=== PATIENT | male | born 1965 | race Caucasian/White ===

== ENCOUNTER 2021-06-20 22:56 | Emergency (ER) | payer OTHER, SELFPAY ==
--- NOTE | ~2021-06-20 | CT_ITS ---
EXAMINATION: CT abdomen pelvis wo con DATE: 06/21/2021 00:21 INDICATION: Worsening back pain, left flank pain TECHNIQUE: Computed tomography (CT) of the abdomen and pelvis was performed without intravenous contr ast. The dose-length product (DLP) was 1252.65 mGy-cm. Automated exposure control and iterative recon struction technique were employed. COMPARISON: 06/12/2016 FINDINGS: The lung bases are clear. The heart size is normal. The liver, spleen, pancreas, gallbladde r, and right adrenal gland are normal. There is a chronic and unchanged 11 mm mass of the left adrena l gland, consistent with an adenoma. There is a 1.7 cm cyst of the right kidney. No stones are identi fied in the kidneys, ureters, or bladder. There is no hydronephrosis or hydroureter. There is calcifi ed atherosclerosis of the aorta and many of the other arteries. No pathologically enlarged abdominal or pelvic lymph nodes are identified. There is no free intraperitoneal gas or evidence of bowel obstr uction. Colonic diverticulosis is present without evidence of diverticulitis. There are changes of me sh ventral hernia repair. The appendix is normal. There are changes of anterior and posterior fusion from L2 through S1. There is severe thoracolumbar spondylosis. IMPRESSION: 1. No CT correlate for the patient's symptoms. No urolithiasis identified. Reviewed, dictated and finalized at location A. [facility] TECH
[2021-06-20 22:59] VITALS: BP 187/118; PULSE 92; RESP 20; TEMP 36.7; O2SAT 98
[2021-06-20 23:16] VITALS: BP 177/106; PULSE 89; RESP 22; O2SAT 99
[2021-06-20] MEDS: ONDANSETRON INJ 4 MG/2 ML VIAL IV PUSH (23:47)
[2021-06-20 23:48] LABS: Basophils Percent Auto 0.5 % (0.2-1.2); Eosinophils Absolute Auto 0.2 K/mm3 (0-0.3); Eosinophils Percent Auto 2.7 % (0-4.4); Hematocrit 45.7 % (42.0-52.0); Hemoglobin 15.5 g/dL (14.0-18.0); Immature Granulocyte Absolute 0.02 K/mm3 (0.00-0.031); Immature Granulocyte Percent A 0.3 % (0-0.5); Lymphocytes Absolute Auto 1.76 K/mm3 (0.9-3.2); Lymphocytes Percent Auto 22.8 % (18.3-44.2); Mean Corpuscular HGB Conc 33.9 g/dl (32-36); Mean Corpuscular Hemoglobin 32.1 pg (26-34); Mean Corpuscular Volume 94.6 fl (80-100); Mean Platelet Volume 10.1 fl (7.4-10.4); Monocytes Absolute Auto 0.8 K/mm3 (0.1-0.6); Monocytes Percent Auto 10.2 % (2.6-8.5); Neutrophils Absolute Auto 4.9 K/mm3 (1.3-6.7); Neutrophils Percent Auto 63.5 % (45.5-73.1); Platelet Count Result 197 k/mm3 (150-375); Red Blood Count 4.83 M/mm3 (4.6-6.20); Red Cell Distribution Width 13.9 % (11.5-14.5); White Blood Count 7.7 K/mm3 (4.5-10.0)
[2021-06-20] MEDS: HYDROmorphone HCL INJ (*CRX) 1 MG/ML SYR IV PUSH (23:48)
[2021-06-20 23:49] LABS: Add Urine Microscopic? NO; Appearance Urine Clear (Clear); Bilirubin Urine Negative (Negative); Blood Urine Negative (Negative); Color Urine Straw (Yellow); Glucose Urine UA Negative (Negative); Ketones Urine Negative (Negative); Leukocyte Esterase Ur Negative LEU/UL (Negative); Nitrate Urine Negative (Negative); Protein Urine Negative (Negative); Urobilinogen Urine Negative mg/dL (<2.0)
[2021-06-21 00:18] VITALS: BP 141/101; PULSE 93; RESP 18; O2SAT 98
--- NOTE | 2021-06-21 00:21 | ED.BACK ---
HPI - Back Pain/Injury General Chief Complaint: Back Pain/Injury Stated Complaint: Back and left leg pain Time Seen by Provider: 06/20/21 23:10 Source: patient and RN notes reviewed Mode of arrival: wheelchair Limitations: no limitations History of Present Illness HPI Narrative: This is a 55 year old male with history of multiple back surgeries with chronic back pain who presents for evaluation of worsening mid back pain that will radiate around to his left flank. His pain is constant and it is worse with position. He says his pain has been worse over the past 3 days. This may be related to performing a lot of yard work recently . Otherwise he denies trauma. He takes hydrocodone 10/325 twice a day chronically for pain for while. He has taken his medication for today but he states he is unable to sleep due to pain. He reports intermittent tingling to left foot that is not new. He states he is unable to take gabapentin because it worsens his nerve pain. He is asking for back injection to help with his pain. He denies fever, chills, hematuria, urinary incontinence or retention. He is worried he may have another kidney stone. Related Data Home Medications Medication Instructions Recorded Confirmed amlodipine 06/20/21 hydrochlorothiazide 06/20/21 hydrocodone-acetaminophen tablet 06/20/21 omeprazole 06/20/21 ondansetron HCl 06/20/21 potassium chloride meq PO 06/20/21 Allergies Allergy/AdvReac Type Severity Reaction Status Date / Time gabapentin AdvReac Other Verified 06/20/21 23:21 Review of Systems Review of Systems: All systems reviewed & are unremarkable except as noted in HPI and below PMFSH Past Medical History Medical History (Updated 06/21/21 @ 02:21 by Salome Kaur MD) Chronic back pain Hypertension Neuropathy Surgical History Surgical History (Updated 06/21/21 @ 00:25 by Salome Kaur MD) Previous back surgery Social History Social History (Updated 06/21/21 @ 00:26 by Salome Kaur MD) Smoking status: Current every day smoker Exam Const: General: alert and ill appearing chronically Nutritional Appearance: obese Orientation/consciousness: patient oriented x3 Eyes: EOM: EOMs intact bilaterally Chest: Chest palpation & inspection: normal inspection of the chest Resp: Effort & Inspection: normal respiratory effort and no retractions Auscultation: clear to auscultation bilaterally Cardio: Rate: regular rate Rhythm: regular rhythm Heart sounds: no murmurs GI: GI Palp: Yes Soft to palpation, No Tenderness to palpation present (GI) and No Guarding due to palpation present (GI) Auscultation: normal bowel sounds Back/Spine/Pelvis: Other: midline lumbar scar, no swelling, no erythema, mild tenderness along scar Neuro: General: patient oriented x3, moves all extremities and CN's II-XI intact bilaterally Cranial nerves: Yes CN's II-XII intact bilaterally Motor exam (neuro): 5/5 motor strength present throughout and Pronator motor function not present Extrem: Other: left ankle with old scar, no drainage, no erythema, no drainage Psych: Mental Status: mental status grossly normal Affect: normal affect Course Reevaluation(s) Reevaluation #1: I have discussed with patient that CT did not show any acute abnormality and no kidney stone.I Discussed discharge plan . He had no other questions or concerns. Date: 06/21/21 Time: 02:18 Vital Signs Vital signs: Vital Signs Temperature 98.0 F 06/20/21 22:59 Pulse Rate 92 06/20/21 22:59 Respiratory Rate 20 06/20/21 22:59 Blood Pressure 187/118 H 06/20/21 22:59 Pulse Oximetry 98 06/20/21 22:59 Temperature 98.0 F 06/20/21 22:59 Pulse Rate 86 06/21/21 02:42 Respiratory Rate 18 06/21/21 02:42 Blood Pressure 140/100 H 06/21/21 02:42 Pulse Oximetry 97 06/21/21 02:42 MDM - Back Pain/Injury Lab Data Attestation: I reviewed the patient's lab results. Result diagrams: 06/20/21
[2021-06-21 00:56] LABS: Alanine Aminotransferase 12 U/L (4-50); Albumin Level 4.4 g/dL (3.5-5.1); Alkaline Phosphatase 70 U/L (38-126); Anion Gap 10 mmol/L (8-16); Aspartate Amino Transferase 22 U/L (17-59); Bilirubin,Total 0.6 mg/dL (0.2-1.3); Blood Urea Nitrogen 22 mg/dL (9-20); Carbon Dioxide 28 mmol/L (22-30); Chloride 97 mmol/L (98-107); Estimated Glomerular Filt Rate > 60; Glucose 108 mg/dL (65-110); Lipase 84 U/L (23-300); Potassium 4.1 mmol/L (3.4-5.0); Sodium 135 mmol/L (137-145)
[2021-06-21 01:19] VITALS: BP 143/110; PULSE 91; RESP 20; O2SAT 95
[2021-06-21 02:42] VITALS: BP 140/100; PULSE 86; RESP 18; O2SAT 97
== END 2021-06-21 03:05 | disposition home or self-care (01) ==
PROVIDERS: Emergency Provider General Practice
DX: M54.16 Radiculopathy, lumbar region (principal); M54.50 Low back pain, unspecified; G89.29 Other chronic pain; I10 Essential (primary) hypertension; G62.9 Polyneuropathy, unspecified; F17.200 Nicotine dependence, unspecified, uncomplicated
CPT/HCPCS: 36415; 74176; 80053; 81003; 83690; 85025; 96374; 96375; 99284; J1170; J2405

== ENCOUNTER 2022-09-21 11:36 | Emergency (ER) | payer OTHER, SELFPAY ==
[2022-09-21 11:53] VITALS: BP 147/89; PULSE 95; RESP 18; O2SAT 97
--- NOTE | 2022-09-21 13:30 | ED.EXTPRO ---
HPI - Extremity Problem General Chief complaint: Extremity Problem,Nontraumatic Stated complaint: left shoulder pain Time Seen by Provider: 09/21/22 12:54 History of Present Illness HPI Narrative: Patient is a 57-year-old male presenting with chronic left shoulder pain. Patient states that he has history of arthritis and he has had chronic shoulder pain for many years. States that he has been taking his pain meds at home but the pain has gotten so bad that it made it difficult for him to sleep. Denies recent injuries. States that he has not seen an orthopedist for this pain. He also complains of chronic back pain. States that he sometimes will have tingling down his left arm. No fevers or chills, numbness, weakness. States it is difficult for him to lift his shoulder fully because of pain. Related Data Home Medications Medication Instructions Recorded Confirmed amlodipine 10 mg tablet 06/20/21 hydrochlorothiazide 25 mg tablet 06/20/21 hydrocodone 10 mg-acetaminophen tablet 06/20/21 325 mg tablet omeprazole 40 mg capsule,delayed 06/20/21 release ondansetron HCl 4 mg tablet 06/20/21 potassium chloride 20 mEq meq PO 06/20/21 tablet,extended release Allergies Allergy/AdvReac Type Severity Reaction Status Date / Time gabapentin AdvReac Other Verified 09/21/22 13:37 Review of Systems Review of Systems: All systems reviewed & are unremarkable except as noted in HPI and below PMFSH Past Medical History Medical History Chronic back pain Hypertension Neuropathy Surgical History Surgical History Previous back surgery Social History Social History Smoking status: Current every day smoker Exam Narrative: GENERAL: Well-appearing, well-nourished, and in no acute distress. HEAD: Normocephalic, atraumatic. EYES: PERRLA and EOMI. ENT: Nares clear, no rhinorrhea or epistaxis. Mucous membranes moist. NECK: Supple. CHEST: No respiratory distress. HEART: Regular rate and rhythm. ABDOMEN: Soft, nontender, nondistended EXTREMITIES: Left shoulder ROM is limited secondary to pain, he is able to abduct to approximately 90 degrees, distal ROM is intact, radial pulses 2+, diffuse tenderness of the left shoulder, no erythema or other skin changes SKIN: Warm, dry, no rash. NEURO: No focal deficits. Alert and oriented x3. PSYCH: Normal mood and affect. Course Vital Signs Vital signs: Vital Signs Pulse Rate 95 09/21/22 11:53 Respiratory Rate 18 09/21/22 11:53 Blood Pressure 147/89 H 09/21/22 11:53 Pulse Oximetry 97 09/21/22 11:53 Oxygen Delivery Room Air 09/21/22 11:53 Pulse Rate 95 09/21/22 11:53 Respiratory Rate 18 09/21/22 11:53 Blood Pressure 147/89 H 09/21/22 11:53 Pulse Oximetry 97 09/21/22 11:53 Oxygen Delivery Room Air 09/21/22 11:53 MDM - Extremity (Nontraumatic) MDM Narrative Medical decision making narrative: Patient is a 57-year-old male presenting with chronic left shoulder pain. Patient is hypertensive, otherwise vitals are within normal limits. Exam is remarkable for the above. He denies any recent injuries or trauma. Do not think imaging is necessary at this time given the chronicity of his symptoms. He states that he has been putting off being evaluated for this so he has not seen an radiologic electronic specialist. States he has been taking his Emmons with minimal relief. Will give IM Toradol and a sling for comfort and advised close PCP and orthopedic follow-up. Appropriate return precautions were given. Patient voiced understanding and is agreeable with plan. Discharged in stable condition. Differential Diagnosis Differential diagnosis: Likely other (chronic shoulder pain, osteoarthritis) Critical Care Time Critical Care Time Critical Care Time: No Discharge Plan Discharg
[2022-09-21] MEDS: KETOROLAC 30 MG/ML VIAL (*BKC) IM (13:37)
== END 2022-09-21 14:02 | disposition home or self-care (01) ==
PROVIDERS: Emergency Provider Emergency Medicine
DX: M25.512 Pain in left shoulder (principal); G89.29 Other chronic pain; I10 Essential (primary) hypertension
CPT/HCPCS: 96372; 99283; A4565; J1885